=== PATIENT | male | born 1955 | race Caucasian/White ===

== ENCOUNTER 2018-11-05 10:49 | Emergency (ER) | payer OTHER ==
[~2018-11-05] VITALS: Ht 172.7 cm; Wt 88.0 kg
[2018-11-05] MEDS ORDERED: ZYLOPRIM300 MG PO (11:05)
[2018-11-05] MEDS ORDERED: TORADOL PO (12:15)
[2018-11-05] MEDS ORDERED: KEFLEX500 M1 PO (12:15)
[2018-11-05 13:00] VITALS: BP 140/70
== END 2018-11-05 13:00 | disposition home or self-care (01) | DRG 605 ==
LOC: ED 10:49
PROC: 0HQFXZZ Repair Right Hand Skin, External Approach (ICD-10-PCS; principal; 2018-11-05)
DX: S61.411A Laceration without foreign body of right hand, initial encounter (principal); S60.222A Contusion of left hand, initial encounter; S60.221A Contusion of right hand, initial encounter; V49.40XA Driver injured in collision with unspecified motor vehicles in traffic accident, initial encounter